=== PATIENT | male | born 1990 | race Caucasian/White ===

== ENCOUNTER 2023-04-25 14:10 | Emergency (ER) | payer BC, OTHER ==
[~2023-04-25] VITALS: Ht 172.7 cm; Wt 81.7 kg
[2023-04-25 15:25] LABS: BASOPHILS ABSOLUTE AUTO 0.05 K/mm3 (0.00-0.23); BASOPHILS PERCENT AUTO 0 % (0-2); EOSINOPHILS PERCENT AUTO 1 % (0-6); Hematocrit 42.8 % (37.0-53.0); Hemoglobin 14.7 g/dL (13.5-17.5); IMMATURE GRAN ABSOLUTE AUTO 0.03 K/mm3 (0.00-0.10); IMMATURE GRAN PERCENT AUTO 0 % (0-1); LYMPHOCYTES ABSOLUTE AUTO 2.64 K/mm3 (0.84-5.20); LYMPHOCYTES PERCENT AUTO 23 % (21-46); MONOCYTES ABSOLUTE AUTO 0.39 K/mm3 (0.16-1.47); MONOCYTES PERCENT AUTO 3 % (4-13); Mean Corpuscular HGB 30.4 pg (26.0-34.0); Mean Corpuscular HGB Conc 34.3 g/dL (31.5-36.5); Mean Corpuscular Volume 88 fL (80-100); Mean Platelet Volume 10.3 fL (9.1-12.4); NEUTROPHILS ABSOLUTE AUTO 8.11 K/mm3 (1.96-9.15); NEUTROPHILS PERCENT AUTO 72 % (41-73); Platelet Count 243 K/mm3 (150-400); RDW Coefficient Variation 12.1 % (11.7-14.2); RDW Standard Deviation 38.9 fL (35.1-46.3); Red Blood Cell Count 4.84 M/mm3 (4.30-5.90); White Blood Cell Count 11.32 K/mm3 (4.00-11.30)
[2023-04-25 15:40] LABS: Base Excess Venous -2.7 mmol/L; PCO2 Venous 31.4 mmHg (38-42); pH Blood Venous 7.44 (7.34-7.37)
[2023-04-25 15:44] LABS: Albumin, Blood 4.2 g/dL (3.4-5.0); Bilirubin, Total 0.9 mg/dL (0.1-1.0); Bun/Creatinine Ratio 11.9 (12.0-20.0); Calcium, Blood 9.6 mg/dL (8.5-10.1); Creatinine, Blood 0.59 mg/dL (0.60-1.20); Potassium, Blood 3.7 mmol/L (3.5-5.5); Total Protein, Blood 8.2 g/dL (6.4-8.2)
[2023-04-25] MEDS ORDERED: INSULIN LI100 UNIT/6 SC (16:50)
[2023-04-25] MEDS ORDERED: BASAGLAR K100 UNIT/3 SC (16:51)
[2023-04-25] MEDS ORDERED: METHYLPHENIDATE18 MG PO (16:51)
[2023-04-25] MEDS ORDERED: LOSARTAN POTASS25 M2 PO (16:51)
[2023-04-25 18:15] VITALS: BP 184/108
== END 2023-04-25 19:46 | disposition home or self-care (01) ==
LOC: ER 14:10
PROVIDERS: Physician Assistant
DX: E10.9 Type 1 diabetes mellitus without complications (principal); Z88.8 Allergy status to other drugs, medicaments and biological substances; Z79.899 Other long term (current) drug therapy; Z79.4 Long term (current) use of insulin
CPT/HCPCS: 80053; 82803; 83735; 85025; 99284

== ENCOUNTER 2023-09-19 09:52 | Day surgery (SDC) | payer BC, OTHER ==
[~2023-09-19] VITALS: Ht 175.3 cm; Wt 11.4 kg
[~2023-09-19 09:52] MED LIST: BASAGLAR K100 UNIT/3 SC; INSULIN LI100 UNIT/6 SC; LOSARTAN POTASS25 M2 PO; Lactated Ringer's 1,000 ML IV ONE; METHYLPHENIDATE18 MG PO; propofoL 50 ML IV ONE
[2023-09-19] MEDS ORDERED: Carvedilol12.5 MG (10:08)
[2023-09-19] MEDS ORDERED: BUSP10 (10:08)
[2023-09-19] MEDS ORDERED: Lactated Ringer's 1,000 ML IV ONE (10:42)
[2023-09-19 11:50] VITALS: BP 115/68
== END 2023-09-19 11:45 | disposition home or self-care (01) ==
LOC: ORSCSDS 09:52
PROVIDERS: Internal Medicine Gastroenterology
PROC: 0DBH8ZX Excision of Cecum, Via Natural or Artificial Opening Endoscopic, Diagnostic (ICD-10-PCS; principal; 2023-09-19 11:00)
DX: R10.84 Generalized abdominal pain (principal); R19.4 Change in bowel habit; K62.89 Other specified diseases of anus and rectum; D12.0 Benign neoplasm of cecum; E10.8 Type 1 diabetes mellitus with unspecified complications; I10 Essential (primary) hypertension; Z83.719 Family history of colon polyps, unspecified; E66.01 Morbid (severe) obesity due to excess calories; Z68.37 Body mass index [BMI] 37.0-37.9, adult; Z79.4 Long term (current) use of insulin; Z79.899 Other long term (current) drug therapy
CPT/HCPCS: 82947; 88305; J2704; J7120